=== PATIENT | female | born 1935 | race Caucasian/White ===

== ENCOUNTER → 2016-12-17 | Outpatient (CLI) | payer MEDICARE, OTHER | END | disposition home or self-care (01) | LOC: PCVCCLINIC 14:00 | PROVIDERS: ATTEND Internal Medicine | DX: I48.2 Chronic atrial fibrillation (principal); I10 Essential (primary) hypertension; I35.0 Nonrheumatic aortic (valve) stenosis; E78.5 Hyperlipidemia, unspecified; I27.2 Other secondary pulmonary hypertension; Z79.01 Long term (current) use of anticoagulants; Z79.899 Other long term (current) drug therapy | CPT/HCPCS: 80061; 93005; G0463 ==

== ENCOUNTER → 2017-06-22 | Outpatient (CLI) | payer MEDICARE, OTHER | END | disposition home or self-care (01) | LOC: PCVCCLINIC 12:30 | PROVIDERS: ATTEND Internal Medicine | DX: I48.2 Chronic atrial fibrillation (principal); I35.0 Nonrheumatic aortic (valve) stenosis; E78.5 Hyperlipidemia, unspecified; I10 Essential (primary) hypertension; R94.31 Abnormal electrocardiogram [ECG] [EKG]; Z88.0 Allergy status to penicillin; Z79.899 Other long term (current) drug therapy | CPT/HCPCS: 80061; 93005; G0463 ==

== ENCOUNTER → 2017-12-21 | Outpatient (CLI) | payer MEDICARE, OTHER | END | disposition home or self-care (01) | LOC: PCVCIMAG 12:14 | DX: I48.2 Chronic atrial fibrillation (principal); I10 Essential (primary) hypertension; E78.5 Hyperlipidemia, unspecified; I08.3 Combined rheumatic disorders of mitral, aortic and tricuspid valves; Z79.01 Long term (current) use of anticoagulants; Z79.899 Other long term (current) drug therapy; Z88.8 Allergy status to other drugs, medicaments and biological substances | CPT/HCPCS: 80061; 93005; 93306; G0463 ==

== ENCOUNTER → 2018-07-31 | Outpatient (CLI) | payer MEDICARE, OTHER | END | disposition home or self-care (01) | LOC: PCVCCLINIC 14:22 | PROVIDERS: ATTEND Internal Medicine | DX: I48.2 Chronic atrial fibrillation (principal); I35.0 Nonrheumatic aortic (valve) stenosis; I10 Essential (primary) hypertension; R94.31 Abnormal electrocardiogram [ECG] [EKG]; E78.5 Hyperlipidemia, unspecified; E03.9 Hypothyroidism, unspecified; J43.9 Emphysema, unspecified; Z79.899 Other long term (current) drug therapy; Z79.01 Long term (current) use of anticoagulants; Z88.8 Allergy status to other drugs, medicaments and biological substances | CPT/HCPCS: 36415; 80061; 93005; G0463 ==

== ENCOUNTER → 2019-01-29 | Outpatient (CLI) | payer MEDICARE, OTHER ==
--- NOTE | 2019-01-29 10:54 | PCVCIMAG ---
APPROVED REPORT Study performed: 01/29/2019 10:17:22 EXAM: Comprehensive 2D, Doppler, and color-flow Echocardiogram Patient Location: Echo lab Status: routine BSA: 1.87 HR: 87 bpmBP: 138/74 mmHg Rhythm: Atrial Fibrillation Other Information Study Quality: Adequate Risk Factors: Cardiac Risk Factors: HTN Indications Atrial Fibrillation aortic stenosis 2D Dimensions IVSd: 12.48 (7-11mm)LVOT Diam: 20.04 (18-24mm) LVDd: 37.22 mm PWd: 12.31 (7-11mm)Ascending Ao: 35.24 (22-36mm) LVDs: 29.55 (25-40mm) Left Atrium: 53.93 (27-40mm) Aortic Root: 33.16 mm LV Single Plane 4CH: 51.14 % LV Single Plane 2CH: 58.19 % Biplane EF: 57.1 % Volumes Left Atrial Volume (Systole) Single Plane 4CH: 95.95 mLSingle Plane 2CH: 117.58 mL LA ESV Index: 58.00 mL/m2 Aortic Valve AoV Peak Brayden.: 2.63 m/s AO Peak Gr.: 27.58 mmHgLVOT Max P.36 mmHg AO Mean Gr.: 16.05 mmHgLVOT Mean P.79 mmHg AO V2 Mean: 1.91 m/sLVOT Max V: 0.92 m/s AO V2 VTI: 57.79 cmLVOT Mean V: 0.63 m/s DYLLAN (VTI): 1.03 [id number] V1 VTI: 18.96 cm DYLLAN Vmax: 1.10 cm2 SV (LVOT): 59.77 mL Pulmonary Valve PV Peak Brayden.: 1.05 m/sPV Peak Gr.: 4.37 mmHg Tricuspid Valve TR Peak Brayden.: 3.79 m/s TR Peak Gr.: 57.59 mmHg Left Ventricle The left ventricle is normal size. There is normal LV segmental wall motion. Mild concentric left ventricular hypertrophy. Left ventricular systolic function is normal. The left ventricular ejection fraction is within the normal range. LVEF is 55%. This study is not technically sufficient to allow evaluation of the LV diastolic function due to atrial fibrillation. Right Ventricle The right ventricle is normal size. The right ventricular systolic function is normal. Atria Left atrium is severely dilated. Right atrium is severely dilated. Aortic Valve The aortic valve is moderately to severely calcified. Moderate stenosis No aortic regurgitation is present. There is moderate valvular aortic stenosis. Calculated aortic valve area is 1.1 cm2 with maximum pressure gradient of 28 mmHg and mean pressure gradient of 16 mmHg. Mitral Valve Mild mitral annular calcification Mild mitral regurgitation. No evidence of mitral valve stenosis. Tricuspid Valve The tricuspid valve is normal in structure. Moderate to severe tricuspid regurgitation with PAP of 65 mmHg. Pulmonic Valve The pulmonary valve is normal in structure. Mild to moderate pulmonic regurgitation. Great Vessels The aortic root is normal in size. IVC is normal in size and collapses >50% with inspiration. Pericardium There is no pericardial effusion. There is no pleural effusion. <Conclusion> Left ventricular systolic function is normal. There is normal LV segmental wall motion. LVEF is 55%. Both atria are severely dilated. The aortic valve is moderately to severely calcified. Moderate stenosis Calculated aortic valve area is 1.1 cm2 with maximum pressure gradient of 28 mmHg and mean pressure gradient of 16 mmHg. Mild mitral annular calcification. Mild mitral regurgitation. Moderate to severe tricuspid regurgitation with pulmonary artery pressure of 65 mmHg. There is no pericardial effusion.
== END | disposition home or self-care (01) ==
LOC: PCVCCLINIC 06-30 15:41 → PCVCIMAG 09:26
PROVIDERS: ATTEND Internal Medicine
DX: I08.1 Rheumatic disorders of both mitral and tricuspid valves (principal); I48.91 Unspecified atrial fibrillation; I10 Essential (primary) hypertension; I35.0 Nonrheumatic aortic (valve) stenosis; Z88.6 Allergy status to analgesic agent; Z88.8 Allergy status to other drugs, medicaments and biological substances
CPT/HCPCS: 36415; 80061; 93005; 93306; G0463